=== PATIENT | male | born 1980 | race Caucasian/White ===

== ENCOUNTER → 2018-06-27 | Outpatient (CLI) | payer BC ==
[2018-06-27 10:59] LABS: HCT 47.6 % (39.0-53.0); HGB 16.2 gm/dL (13.0-17.5); MCH 30.6 pg (25.0-35.0); MCHC 33.9 g/dL (31.0-37.0); Mean Platelet Volume 7.2; Platelet Count 266 k/uL (150-450); RBC 5.29 m/uL (4.30-5.90); RDW 12.7 % (11.5-15.5); WBC 5.9 k/uL (3.8-10.6)
[2018-06-27 11:10] LABS: ALT 41 U/L (21-72); AST 28 U/L (17-59); Albumin 4.8 g/dL (3.5-5.0); Alkaline Phosphatase 47 U/L (38-126); Anion Gap 8 mmol/L; Blood Urea Nitrogen 17 mg/dL (9-20); Carbon Dioxide 30 mmol/L (22-30); Chloride 103 mmol/L (98-107); Cholesterol 240 mg/dL (<200); Glucose 96 mg/dL (74-99); HDL Cholesterol 56 mg/dL (40-60); LDL Cholesterol,Calculated 148 mg/dL (0-99); Sodium 141 mmol/L (137-145); Total Bilirubin 1.1 mg/dL (0.2-1.3); Total Protein 7.9 g/dL (6.3-8.2); Triglycerides 179 mg/dL (<150)
[2018-06-27 11:26] LABS: T4, Free (Free Thyroxine) 1.26 ng/dL (0.78-2.19)
--- NOTE | 2018-06-27 11:50 | ECHOF ---
Referral Reason:R07.9 chest pain MEASUREMENTS -------- HEIGHT: 182.9 cm WEIGHT: 95.3 kg BP: RVIDd: 2.7 cm (< 3.3) IVSd: 1.2 cm (0.6 - 1.1) LVIDd: 4.3 cm (3.9 - 5.3) LVPWd: 1.4 cm (0.6 - 1.1) IVSs: 1.5 cm LVIDs: 3.1 cm LVPWs: 1.3 cm LA Diam: 3.8 cm (2.7 - 3.8) Ao Diam: 2.9 cm (2.0 - 3.7) AV Cusp: 1.9 cm (1.5 - 2.6) LA Diam: 3.9 cm (2.7 - 3.8) MV EXCURSION: 25.054 mm (> 18.000) MV EF SLOPE: 87 mm/s (70 - 150) EPSS: 0.5 cm MV E Rikki: 0.45 m/s MV DecT: 199 ms MV A Rikki: 0.60 m/s MV E/A Ratio: 0.75 RAP: 5.00 mmHg RVSP: 15.39 mmHg FINDINGS -------- Sinus rhythm. This was a technically good study. The left ventricular size is normal. There is borderline concentric left ventricular hypertrophy. Overall left ventricular systolic function is normal with, an EF between 55 - 60 %. The right ventricle is normal in size. The left atrial size is normal. The right atrial size is normal. There is mild aortic valve sclerosis. Mild mitral annular calcification present. Mild mitral regurgitation is present. Mild tricuspid regurgitation present. There is no evidence of pulmonary hypertension. The right v entricular systolic pressure, as measured by Doppler, is 15.39mmHg. There is no pulmonic regurgitation present. The aortic root size is normal. There is no pericardial effusion. CONCLUSIONS -------- 1. The left ventricular size is normal. 2. There is borderline concentric left ventricular hypertrophy. 3. Overall left ventricular systolic function is normal with, an EF between 55 - 60 %. 4. The right ventricle is normal in size. 5. The left atrial size is normal. 6. The right atrial size is normal. 7. There is mild aortic valve sclerosis. 8. Mild mitral annular calcification present. 9. Mild mitral regurgitation is present. 10. Mild tricuspid regurgitation present. 11. There is no evidence of pulmonary hypertension. 12. The right ventricular systolic pressure, as measured by Doppler, is 15.39mmHg. 13. There is no pulmonic regurgitation present. 14. The aortic root size is normal. 15. There is no pericardial effusion. MANAGER ADMINISTRATION: Valarie Vieira RDCS
--- NOTE | 2018-06-27 12:48 | EST ---
EXERCISE STRESS AGE: 37 SEX: M HT: 74" WT: 210 PROTOCOL: Stress Test STAGE: 4 DURATION OF EXERCISE: 10:30 HEART RATE REST: 88 BLOOD PRESSURE REST: 121/80 MAXIMUM HEART RATE ACHIEVED: 162 MAXIMUM BLOOD PRESSURE: 162/68 85% MPHR: 154 100% MPHR: 181 METS: 12.1 INDICATIONS: Chest pain. CLINICAL INFORMATION: Baseline EKG shows sinus rhythm, normal axis, normal intervals. Patient exercised on Manjit protocol for a total of 10.5 minutes achieving 12 METS, 89% of predicted maximal heart rate without chest pain or diagnostic ST-segment depression. CONCLUSION: 1. Excellent exercise tolerance. 2. Negative stress test by EKG criteria. MMODL / IJN: [id number] /
== END | disposition home or self-care (01) ==
LOC: RADNMMAIN 08:58
PROVIDERS: ATTEND Physician Assistant
DX: I08.3 Combined rheumatic disorders of mitral, aortic and tricuspid valves (principal); R07.9 Chest pain, unspecified; Z00.00 Encounter for general adult medical examination without abnormal findings; R07.89 Other chest pain; Z13.220 Encounter for screening for lipoid disorders
CPT/HCPCS: 80053; 80061; 84439; 84443; 85027; 93017; 93306

== ENCOUNTER 2019-02-11 14:23 | Emergency (ER) | payer BC ==
[2019-02-11 14:29] VITALS: BP 127/77; PULSE 82; RESP 16; TEMP 98.7
[2019-02-11] MEDS ORDERED: KETOROLAC 60 MG/2 ML VIAL IM STA (14:35)
--- NOTE | 2019-02-11 14:55 | XR ---
EXAMINATION TYPE: XR knee 4V RT DATE OF EXAM: 02/11/2019 COMPARISON: NONE HISTORY: Pain after twisting injury TECHNIQUE: 4 views FINDINGS: Joint spaces are normal. I see no fracture nor dislocation. There is small knee joint effus ion. IMPRESSION: Small joint effusion. No fracture seen.
--- NOTE | 2019-02-11 15:26 | ED ---
General Adult HPI - General Chief complaint: Extremity Injury, Lower Stated complaint: Knee injury Time Seen by Provider: 02/11/19 14:35 Source: patient, RN notes reviewed, old records reviewed Mode of arrival: wheelchair Limitations: no limitations - History of Present Illness Initial comments: 38-year-old male patient sent to ED chief complaint of right knee injury. Patient port that yesterday while playing softball he swung the bat, suffered a twisting injury to his right knee. Patient reports that he has generalized pain in the anterior aspect his right knee. Patient has been ambulatory but with pain. Patient denies any sensation of dislocation. Denies other complaints. Systemic: Pt denies fatigue, fever/chills, rash. Pt denies weakness, night sweats, weight loss. Neuro: Pt denies headache, visual disturbances, syncope or pre-syncope. HEENT: Pt denies ocular discharge or irritation, otalgia, rhinorrhea, pharyngitis or notable lymphadenopathy. Cardiopulmonary: Pt denies chest pain, SOB, heart palpitations, dyspnea on exertion. Abdominal/GI: Pt denies abdominal pain, n/v/d. : Pt denies dysuria, burning w/ urination, frequency/urgency. Denies new onset urinary or bowel incontinence. MSK: Pt denies myalgia, loss of strength or function in extremities. Neuro: Pt denies new onset weakness, paresthesias. - Related Data Allergies Allergy/AdvReac Type Severity Reaction Status Date / Time No Known Allergies Allergy Verified 02/11/19 14:29 Review of Systems ROS Statement: Those systems with pertinent positive or pertinent negative responses have been documented in the HPI. ROS Other: All systems not noted in ROS Statement are negative. Past Medical History Past Medical History: No Reported History History of Any Multi-Drug Resistant Organisms: None Reported Past Surgical History: Appendectomy Past Psychological History: No Psychological Hx Reported Smoking Status: Never smoker Past Alcohol Use History: None Reported Past Drug Use History: None Reported General Exam - General Exam Comments Initial Comments: Constitutional: NAD, AOX3, Pt has pleasant affect. HEENT: NC/AT, trachea midline, neck supple, no lymphadenopathy. Posterior pharynx non erythematous, without exudates. External ears appear normal, without discharge. Mucous membranes moist. Eyes PERRLA, EOM intact. There is no scleral icterus. No pallor noted. Cardiopulmonary: RRR, no murmurs, rubs or gallops, no JVD noted. Lungs CTAB in anterior and posterior jaramillo. No peripheral edema. Abdominal exam: Abdomen soft and non-distended. Abdomen non-tender to palpation in all 4 quadrants. Bowel sounds active in LLQ. No hepatosplenomegaly. No ecchymosis Neuro: CN II-XII grossly intact. No nuchal rigidity. No raccon eyes, no wolfe sign, no hemotympanum. No cervical spinal tenderness. MSK: Flexion and extension intact actively and passively of right knee. Distal pulses intact and equal. Mild effusion noted. No posterior calf tenderness bilaterally, homans sign negative bilaterally. Posterior tibialis and radial pulse +2 bilaterally. Sensation intact in upper and lower extremities. Full active ROM in upper and lower extremities, 5/5 stregnth. Limitations: no limitations Course Vital Signs 02/11/19 14:26 Temperature 98.7 F Pulse Rate 82 Respiratory 16 Rate Blood Pressure 127/77 O2 Sat by Pulse 97 Oximetry Medical Decision Making - Medical Decision Making 38-year-old male patient sent to ED chief complaint of right knee injury. Patient port that yesterday while playing softball he swung the bat, suffered a twisting injury to his right knee. Patient reports that he has generalized pain in the anterior aspect his right knee. Patient has been ambulatory but with pain. Patient denies any sensation of dislocation. Denies other complaints. Physical exam displayed: Flexion and extension intact actively and passively of right knee. Distal pulses intact and equal. Mild effusion noted. Plain film of the displayed small joint effusion. Patient placed in immobilizer, will be discharged with crutches and orthopedic follow-up. Will be advised not to bear weight on right lower extremity. Case discussed with Dr. Gandhi. Disposition Clinical Impression: Knee sprain Disposition: HOME SELF-CARE Condition: Stable Instructions (If sedation given, give patient instructions): Knee Sprain (ED) Additional Instructions: Patient to adhere to previously discussed treatment plan and will take medication(s) as directed. Patient to follow up with PCP in 1-2 days. Patient to return to ED if symptoms do not improve. Use crutches, do not bear weight on right lower extremity. Follow-up with orthopedic consult Tuesday. Continue wear knee immobilizer. Return to ER if condition worsens. Is patient prescribed a controlled substance at d/c from ED?: No Referrals: Ken Marcus MD [Primary Care Provider] - 1-2 days Fran Clemens PAC [PHYSICIAN [facility]] - 1-2 days
== END 2019-02-11 15:42 | disposition home or self-care (01) ==
LOC: EC 14:23
DX: S83.91XA Sprain of unspecified site of right knee, initial encounter (principal); M25.461 Effusion, right knee; X50.1XXA Overexertion from prolonged static or awkward postures, initial encounter; Y93.64 Activity, baseball; Y92.39 Other specified sports and athletic area as the place of occurrence of the external cause
CPT/HCPCS: 73564; 99284; 96372; J1885

== ENCOUNTER 2020-09-25 18:51 | Emergency (ER) | payer BC, OTHER ==
[2020-09-25 18:57] VITALS: BP 147/97; RESP 18; TEMP 98.1
[2020-09-25] MEDS ORDERED: IBUPROFEN 600 MG TAB PO STA (19:14)
--- NOTE | 2020-09-25 19:24 | ED ---
General Adult HPI - General Chief complaint: Extremity Injury, Lower Stated complaint: [facility] Fall Time Seen by Provider: 09/25/20 19:07 Source: patient, RN notes reviewed Mode of arrival: ambulatory Limitations: no limitations - History of Present Illness Initial comments: 40-year-old male presents to the emergency room for a chief complaint of right hip and proximal thigh pain. 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 Patient reports he is able to walk on it but it is sore. Patient denies hitting his head. Denies any loss of consciousness. Patient has not had anything for pain as of yet.Patient has no other complaints at this time including shortness of breath, chest pain, abdominal pain, nausea or vomiting, headache, or visual changes. - Related Data Previous Rx's Medication Instructions Recorded Acetaminophen Tab [Tylenol Tab] 500 mg PO Q6H PRN #30 tablet 02/11/19 Ibuprofen [Motrin] 600 mg PO Q8HR PRN #40 day 02/11/19 Allergies Allergy/AdvReac Type Severity Reaction Status Date / Time No Known Allergies Allergy Verified 09/25/20 18:57 Review of Systems ROS Statement: Those systems with pertinent positive or pertinent negative responses have been documented in the HPI. ROS Other: All systems not noted in ROS Statement are negative. Past Medical History Past Medical History: No Reported History History of Any Multi-Drug Resistant Organisms: None Reported Past Surgical History: Appendectomy Past Psychological History: No Psychological Hx Reported Smoking Status: Never smoker Past Alcohol Use History: None Reported Past Drug Use History: None Reported General Exam Limitations: no limitations General appearance: alert, in no apparent distress Head exam: Present: atraumatic, normocephalic, normal inspection Eye exam: Present: normal appearance, PERRL, EOMI. Absent: scleral icterus, conjunctival injection, periorbital swelling ENT exam: Present: normal exam, mucous membranes moist Neck exam: Present: normal inspection. Absent: tenderness, meningismus, lymphadenopathy Respiratory exam: Present: normal lung sounds bilaterally. Absent: respiratory distress, wheezes, rales, rhonchi, stridor Cardiovascular Exam: Present: regular rate, normal rhythm, normal heart sounds. Absent: systolic murmur, diastolic murmur, rubs, gallop, clicks Extremities exam: Present: full ROM (Patient has full flexion and extension of the right hip), tenderness (Mild tenderness noted to the lateral proximal femur area.), normal capillary refill (Capillary refill less than 2 seconds right lower extremity), other (Patient is able to ambulate) Course Vital Signs 09/25/20 18:55 Temperature 98.1 F Pulse Rate 97 Respiratory 18 Rate Blood Pressure 147/97 O2 Sat by Pulse 99 Oximetry Medical Decision Making - Medical Decision Making XR of the right hip and pelvis are both negative. X-ray of the right femur is negative. Patient was given Motrin, did not want any other pain medications. He is able to ambulate. At this time pain is likely related to soft tissue injury. Recommend he do anti-inflammatories and Rice therapy. If symptoms persist he should've repeat x-rays performed. He should return here for any worsening symptoms. He can follow up with primary care but we will also give him orthopedic follow-up as needed Disposition Clinical Impression: Fall, Hip pain, right Disposition: HOME SELF-CARE Condition: Good Instructions (If sedation given, give patient instructions): Hip Pain (ED) Additional Instructions: Please take Motrin and Tylenol for pain. Please ice the area. Follow-up with primary care or orthopedics. If you have worsening symptoms or unable to ambulate return to the emergency room. Is patient prescribed a controlled substance at d/c from ED?: No Referrals: Bernardo Sanchez MD [STAFF PHYSICIAN] - 1-2 days Wayne John MD [STAFF PHYSICIAN] - 1-2 days Time of Disposition: 20:16
--- NOTE | 2020-09-25 19:54 | XR ---
PROCEDURE: XR Hip RT and AP Pelvis - 3V DATE AND TIME: 09/25/2020 7:24 PM CLINICAL INDICATION: PHH; fall, pain TECHNIQUE: AP and frog-leg lateral right hip views, and AP pelvic view COMPARISON: None FINDINGS: There is no fracture or malalignment. The soft tissues are unremarkable. IMPRESSION: NO ACUTE PROCESS.
--- NOTE | 2020-09-25 19:55 | XR ---
PROCEDURE: XR femur RT - 4V DATE AND TIME: 09/25/2020 7:24 PM CLINICAL INDICATION: PHH; fall, pain TECHNIQUE: Orthogonal views from the hip to the knee COMPARISON: 02/11/2019 FINDINGS: There is no fracture or malalignment. The soft tissues are unremarkable. IMPRESSION: NO ACUTE PROCESS.
[2020-09-25 21:03] VITALS: PULSE 75
== END 2020-09-25 21:03 | disposition home or self-care (01) ==
LOC: EC 18:51
DX: M25.551 Pain in right hip (principal); W01.0XXA Fall on same level from slipping, tripping and stumbling without subsequent striking against object, initial encounter; Z90.49 Acquired absence of other specified parts of digestive tract; Y93.G1 Activity, food preparation and clean up; Y92.511 Restaurant or cafe as the place of occurrence of the external cause
CPT/HCPCS: 73502; 99284

== ENCOUNTER → 2020-09-29 | Outpatient (CLI) | payer OTHER ==
--- NOTE | 2020-09-29 15:03 | XR ---
Right shoulder HISTORY: Pain, trauma 4 days prior 3 views of the right shoulder Bone mineralization, joint spaces and alignment are maintained. Right lung apex as visualized is norm al. IMPRESSION: No acute fracture or dislocation.
== END | disposition home or self-care (01) ==
LOC: RADXRMAIN 09:34
PROVIDERS: ATTEND Emergency Medicine
DX: S49.91XA Unspecified injury of right shoulder and upper arm, initial encounter (principal); M25.511 Pain in right shoulder